=== PATIENT | female | born 1945 | race Caucasian/White ===

== ENCOUNTER → 2019-09-07 | Outpatient (CLI) | payer MEDICARE, OTHER ==
--- NOTE | 2019-09-07 12:25 | Diagnostic Imaging Report ---
EXAM: MODIFIED BA. SWALLOW DATE: 09/07/2019 9:45 AM INDICATION: Dysphagia COMPARISON: None Fluoroscopy Time: 1.6 min. Reference Air Kerma (Ka, r): 5.88 mGy. FINDINGS/IMPRESSION: Modified barium swallow was performed by the speech pathologist. The radiologist wasn't present for the examination and an intraprocedural vertebral report was not requested. Provided images demonstrate no evidence for subglottic tracheal aspiration. Please see speech pathology report for further details. Signed by: Dr. Nestor Maki MD on 09/07/2019 12:21 PM
== END ==
LOC: DX 10:41
PROVIDERS: ATTEND Physician Assistant
DX: R13.10 Dysphagia, unspecified (principal); G70.00 Myasthenia gravis without (acute) exacerbation; Z11.59 Encounter for screening for other viral diseases
CPT/HCPCS: 74230; 92611; U0002